=== PATIENT | male | born 1960 | race Caucasian/White ===

== ENCOUNTER 2024-10-02 10:40 | Emergency (ER) | payer MEDICARE, OTHER, SELFPAY ==
[2024-10-02] VITALS (14 sets, daily range): BP systolic 107–158; BP diastolic 71–92; PULSE 50–68; RESP 12–26; TEMP 36.4; O2SAT 95–98; BMI 25.1
--- NOTE | 2024-10-02 10:47 | EKG_ITS ---
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
--- NOTE | 2024-10-02 10:53 | DI.RAD.S_ITS ---
PROCEDURE: XR CHEST 1V INDICATIONS: syncope TECHNIQUE: One view of the chest was acquired. COMPARISON: None. FINDINGS: Surgical changes and devices: None. Lungs and pleura: Lungs are clear. No pleural effusions or pneumothorax. Mediastinum: Mediastinal contours appear normal. Heart size is normal. Bones and chest wall: No suspicious bony lesions. Overlying soft tissues appear unremarkable. IMPRESSION: No acute cardiopulmonary abnormality is seen. Dictated by: Manuel Venegas M.D. on 10/02/2024 at 10:32 Approved by: Manuel Venegas M.D. on 10/02/2024 at 10:32
--- NOTE | 2024-10-02 10:54 | PC.NURSE ---
Pt reports he does not answer SI/HI routine questions. Pt has no threatening behavior. Compliant with care.
[2024-10-02 11:00] LABS: Add Manual Diff / Slide Review NO; Hematocrit 46.1 % (41-53); Hemoglobin 16.0 g/dL (13.5-17.5); Lymphocytes Absolute Auto 1000 /uL (1100-4500); Mean Corpuscular HGB Conc 34.7 % (30-36); Mean Corpuscular Hemoglobin 31.4 PG (26-34); Mean Corpuscular Volume 90.5 fL (80-100); Platelet Count 118 X10^3/uL (150-400)
[2024-10-02 11:07] LABS: INR 1.0 (0.9-1.3); Prothrombin Time 10.8 SECONDS (9.4-12.5)
[2024-10-02 11:09] LABS: Alanine Aminotransferase 35 IU/L (<50); Albumin 4.7 g/dL (3.5-5.0); Albumin Globulin Ratio 1.6 (1.0-2.8); Alkaline Phosphatase 45 U/L (38-126); Blood Urea Nitrogen 23 mg/dL (9-20); Calcium 9.2 mg/dL (8.4-10.2); Carbon Dioxide 27 mmol/L (22-32); Chloride 105 mmol/L (98-107); Estimated Glomerular Filt Rate > 60 mL/min (>60); Globulin 2.9 g/dL (1.7-4.1); Glucose 96 mg/dL (70-99); HEMOLYSIS 24 (0-50); PTT Partial Thromboplastin Tim 24 SECONDS (25.1-36.5); Potassium 4.2 mmol/L (3.4-5.1); Sodium 140 mmol/L (137-145); Total Protein 7.6 g/dL (6.3-8.2)
[2024-10-02 11:20] LABS: NT-proBNP (BNP-Adult 18+) 104 pg/mL (<125); Troponin I < 0.012 ng/mL (0.01-0.034)
[2024-10-02 11:50] LABS: Thyroid Stimulating Hormone 1.28 uIU/mL (0.47-4.68)
[2024-10-02 13:18] LABS: Appearance Urine UA CLEAR; Bilirubin Urine UA NEGATIVE (NEGATIVE); Color Urine UA YELLOW; Glucose Urine UA NEGATIVE (Negative); Ketones Urine UA NEGATIVE (NEGATIVE); Leukocyte Esterase Urine UA NEGATIVE (NEGATIVE); Nitrite Urine UA NEGATIVE (Negative); Occult Blood Urine UA NEGATIVE (Negative); Protein Urine UA NEGATIVE (Negative); Specific Gravity Urine UA 1.020 (1.000-1.035); Urobilinogen Urine UA 2.0 E.U./dL (0.2); pH Urine UA 6.5 (4.5-8.0)
[2024-10-02 13:22] LABS: UR Morphine/Opiate cutoff 300 Negative (Negative); Ur Creatinine Normal (Normal); Ur Specific Gravity Normal (Normal); Urine MDMA Negative (Negative); Urine Methamphetamines Negative (Negative); Urine THC Negative (Negative); Urine Tricyclic Antidepressant Negative (Negative); Urine pH Normal (Normal)
[2024-10-02 13:39] LABS: Troponin I 0.015 ng/mL (0.01-0.034)
--- NOTE | 2024-10-02 15:51 | ED.SYNCOPE ---
HPI - Syncope General Chief Complaint: Syncope Stated Complaint: passed out, 1 yr ago heart attack protocol Time Seen by Provider: 10/02/24 10:52 Source: patient Mode of arrival: Ambulatory Limitations: no limitations History of Present Illness HPI narrative: Pleasant 63-year-old man with a history of [place] 1 year ago comes to the ER because of a syncopal episode which occurred while he was washing his face today. 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 He states for many years his resting heart rate has been in the 40s or 50s. He was put on metoprolol after his [place] but this had to be discontinued because of low heart rates and lightheadedness. However, he denies any syncope for at least 30 years but he has syncopized in the past. He denies any injuries today no headache neck pain or changes in vision hearing speech or swallowing. No new numbness tingling or weakness anywhere on the body or pain anywhere on the body. He has no other concerns or complaints at this time. Related Data Allergies Allergy/AdvReac Type Severity Reaction Status Date / Time No Known Drug Allergies Allergy Verified 10/02/24 10:47 Patient History Social History Smoking Status: Never smoker Smoking Status: Never smoker Exam Initial Vital Signs Initial Vital Signs: Vital Signs Temperature 97.6 F 10/02/24 10:44 Pulse Rate 60 10/02/24 10:44 Respiratory Rate 16 10/02/24 10:44 Blood Pressure 158/92 H 10/02/24 10:44 Pulse Oximetry 98 10/02/24 10:44 Oxygen Delivery Method Room Air 10/02/24 10:44 Const General: comfortable, well developed, No acute distress, No in distress and No ill appearing Nutritional Appearance: average body habitus [facility] Head: normal to inspection, normocephalic and atraumatic Neck Neck: normal visual inspection and No tender Carotids: no bruits Chest Chest: normal inspection of the chest Resp Effort & Inspection: normal respiratory effort Auscultation: clear to auscultation bilaterally and no wheezes Cardio Rate: bradycardic Rhythm: regular rhythm Heart Sounds: S1 normal and S2 normal GI Palpation: soft and No tender General: No CVA tenderness Neuro General: patient alert, patient awake, patient oriented x3, tone normal and moves all extremities Cranial Nerves: CN's II-XI intact bilaterally and PERRL Psych Appearance: grossly normal Course Course Course Narrative: Patient seen and examined by myself upon arrival. His entire workup including electrolytes and cardiac enzymes x2 was negative. Thankfully, the patient does have an upcoming cardiology appointment in 2 days so I called their practice and spoke with Dr. 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 She also advised that it was okay to discharge this patient home since he has an echo coming this week and he has not been syncopized in more than once. She also advised that she would order him a outpatient bus monitor to assess for arrhythmia. Otherwise, I gave the patient safety instructions including not to do any activity where losing consciousness could harm him including riding a bike, driving a car, swimming or bathing alone etc.. The patient was in agreement with this plan as was his . Orders Ordered: ED Orders 10/02/24 10:50 BNP [NT-proBNP (BNP-Adult 18+)] Stat Complete Blood Count AUTO DIFF Stat Comprehensive Metabolic Panel Stat D Dimer Stat PTT Partial Thromboplastin Reji Stat Prothrombin Time INR Stat TSH [Thyroid Stimulating Hormone] Stat Troponin I Stat 10/02/24 10:52 EKG-12 Lead Stat 10/02/24 10:53 XR chest 1V Stat 10/02/24 13:05 Trop I [Troponin I] Stat Urinalysis Screen (Dip Only) Stat Urine Drug Screen, Rapid Stat EKG: Sinus bradycardia 56 beats per minute. No ST or T-wave changes. Vital Signs Vital signs: Vital Signs - 8 hr 10/02/24 10:44 10/02/24 10:44 10/02/24 10:47 Temperature 97.6 F Pulse Rate 60 58 L 59 L Pulse Rate [Orthostatic Lying] Pulse Rate [Orthostatic Sitting] Pulse Rate [Orthostatic Standing] Respiratory Rate 16 23 12 Blood Pressure 158/92 H Blood Pressure [Orthostatic Lying] Blood Pressure [Orthostatic Sitting] Blood Pressure [Orthostatic Standing] Pulse Oximetry 98 96 Oxygen Delivery Method Room Air 10/02/24 10:47 10/02/24 11:00 10/02/24 11:00 Temperature Pulse Rate 56 L Pulse Rate [Orthostatic Lying] Pulse Rate [Orthostatic Sitting] Pulse Rate [Orthostatic Standing] Respiratory Rate 22 Blood Pressure 158/92 H 120/75 Blood Pressure [Orthostatic Lying] Blood Pressure [Orthostatic Sitting] Blood Pressure [Orthostatic Standing] Pulse Oximetry 95 Oxygen Delivery Method 10/02/24 11:30 10/02/24 11:30 10/02/24 11:56 Temperature Pulse Rate 59 L Pulse Rate [Orthostatic Lying] Pulse Rate [Orthostatic Sitting] Pulse Rate [Orthostatic Standing] Respiratory Rate 15 Blood Pressure 115/82 111/71 Blood Pressure [Orthostatic Lying] Blood Pressure [Orthostatic Sitting] Blood Pressure [Orthostatic Standing] Pulse Oximetry 96 Oxygen Delivery Method 10/02/24 11:56 10/02/24 11:58 10/02/24 11:58 Temperature Pulse Rate 53 L 59 L Pulse Rate [Orthostatic Lying] Pulse Rate [Orthostatic Sitting] Pulse Rate [Orthostatic Standing] Respiratory Rate 20 20 Blood Pressure 128/76 Blood Pressure [Orthostatic Lying] Blood Pressure [Orthostatic Sitting] Blood Pressure [Orthostatic Standing] Pulse Oximetry 95 96 Oxygen Delivery Method 10/02/24 11:59 10/02/24 11:59 10/02/24 12:00 Temperature Pulse Rate 68 Pulse Rate [Orthostatic Lying] 53 L Pulse Rate [Orthostatic Sitting] 57 L Pulse Rate [Orthostatic Standing] 67 Respiratory Rate 18 Blood Pressure 111/80 Blood Pressure [Orthostatic Lying] 111/71 Blood Pressure [Orthostatic Sitting] 128/76 Blood Pressure [Orthostatic Standing] 111/80 Pulse Oximetry 96 Oxygen Delivery Method 10/02/24 12:00 10/02/24 12:30 10/02/24 12:30 Temperature Pulse Rate 56 L 54 L Pulse Rate [Orthostatic Lying] Pulse Rate [Orthostatic Sitting] Pulse Rate [Orthostatic Standing] Respiratory Rate 22 15 Blood Pressure 107/73 Blood Pressure [Orthostatic Lying] Blood Pressure [Orthostatic Sitting] Blood Pressure [Orthostatic Standing] Pulse Oximetry 96 96 Oxygen Delivery Method 10/02/24 13:04 10/02/24 13:06 10/02/24 13:06 Temperature Pulse Rate 65 56 L Pulse Rate [Orthostatic Lying] Pulse Rate [Orthostatic Sitting] Pulse Rate [Orthostatic Standing] Respiratory Rate 15 Blood Pressure 126/75 Blood Pressure [Orthostatic Lying] Blood Pressure [Orthostatic Sitting] Blood Pressure [Orthostatic Standing] Pulse Oximetry 95 96 Oxygen Delivery Method 10/02/24 13:30 10/02/24 13:30 10/02/24 14:00 Temperature Pulse Rate 52 L Pulse Rate [Orthostatic Lying] Pulse Rate [Orthostatic Sitting] Pulse Rate [Orthostatic Standing] Respiratory Rate 22 Blood Pressure 115/72 108/79 Blood Pressure [Orthostatic Lying] Blood Pressure [Orthostatic Sitting] Blood Pressure [Orthostatic Standing] Pulse Oximetry 95 Oxygen Delivery Method 10/02/24 14:00 10/02/24 14:30 10/02/24 14:30 Temperature Pulse Rate 58 L 50 L Pulse Rate [Orthostatic Lying] Pulse Rate [Orthostatic Sitting] Pulse Rate [Orthostatic Standing] Respiratory Rate 26 H 21 Blood Pressure 122/80 Blood Pressure [Orthostatic Lying] Blood Pressure [Orthostatic Sitting] Blood Pressure [Orthostatic Standing] Pulse Oximetry 95 95 Oxygen Delivery Method MDM - Syncope Differential Diagnosis Differential diagnosis: Likely syncope due to orthostatic hypotension, vasovagal syncope, complete atrioventricular block, subarachnoid hemorrhage, pulmonary embolism and dehydration Lab Data 10/02/24 10:50 10/02/24 10:50 Labs: Lab Results 10/02/24 10/02/24 10/02/24 Range/Units 10:50 11:01 13:05 WBC 5.4 (4.5-11.0) X10^3/uL RBC 5.09 (4.5-5.9) X10^6/uL Hgb 16.0 (13.5-17.5) g/dL Hct 46.1 (41-53) % MCV 90.5 (80-100) fL MCH 31.4 (26-34) PG MCHC 34.7 (30-36) % RDW 13.2 (11.6-14.8) % Plt Count 118 L (150-400) X10^3/uL Neut % (Auto) 70.6 (50-75) % Lymph % (Auto) 17.6 L (25-40) % Ada % (Auto) 5.8 (3-14) % Eos % (Auto) 5.4 H (2-4) % Baso % (Auto) 0.6 (0-2) % Neut # (Auto) 3800 (2002-8645) /uL Lymph # (Auto) 1000 L (2446-4663) /uL Ada # (Auto) 300 (0-900) /uL Eos # (Auto) 300 (0-450) /uL Baso # (Auto) 0 (0-100) /uL PT 10.8 (9.4-12.5) SECONDS INR 1.0 (0.9-1.3) APTT 24 L (25.1-36.5) SECONDS D-Dimer < 215 (<500) ng/ml Sodium 140 (137-145) mmol/L Potassium 4.2 (3.4-5.1) mmol/L Chloride 105 (98-107) mmol/L Carbon Dioxide 27 (22-32) mmol/L BUN 23 H (9-20) mg/dL Creatinine 1.16 (0.66-1.25) mg/dL Estimated GFR > 60 (>60) mL/min BUN/Creatinine Ratio 19.8 (6-22) Glucose 96 (70-99) mg/dL POC Whole Bld Glucose 107 H (70-99) mg/dL Calcium 9.2 (8.4-10.2) mg/dL Total Bilirubin 1.1 (0.2-1.3) mg/dL AST 42 (17-59) IU/L ALT 35 (<50) IU/L Alkaline Phosphatase 45 (38-126) U/L Troponin I < 0.012 0.015 (0.01-0.034) ng/mL NT-Pro-B Natriuret Pep 104 (<125) pg/mL Total Protein 7.6 (6.3-8.2) g/dL Albumin 4.7 (3.5-5.0) g/dL Globulin 2.9 (1.7-4.1) g/dL Albumin/Globulin Ratio 1.6 (1.0-2.8) TSH 1.28 (0.47-4.68) uIU/mL Urine Color Yellow Urine Appearance Clear Urine pH 6.5 (4.5-8.0) Ur Specific [place] 1.020 (1.000-1.035) Urine Protein Negative (Negative) Urine Glucose (UA) Negative (Negative) g/dL Urine Ketones Negative (NEGATIVE) Urine Occult Blood Negative (Negative) Urine Nitrate Negative (Negative) Urine Bilirubin Negative (NEGATIVE) Urine Urobilinogen 2.0 H (0.2) E.U./dL Ur Leukocyte Esterase Negative (NEGATIVE) U Opiates 300ng/mL cut Negative (Negative) Ur Oxycodone Screen Negative (Negative) Urine Methadone Screen Negative (Negative) Ur Barbiturates Screen Negative (Negative) U Tricyclic Antidepress Negative (Negative) Ur Phencyclidine Scrn Negative (Negative) Ur Amphetamines Screen Negative (Negative) U Methamphetamines Scrn Negative (Negative) Ur MDMA Scrn (Ecstasy) Negative (Negative) U Benzodiazepines Scrn Negative (Negative) Urine Cocaine Screen Negative (Negative) U Marijuana (THC) Screen Negative (Negative) Urine Specific [place] (Normal) Ur Creatinine (Normal) 10/02/24 Range/Units 13:05 WBC (4.5-11.0) X10^3/uL RBC (4.5-5.9) X10^6/uL Hgb (13.5-17.5) g/dL Hct (41-53) % MCV (80-100) fL MCH (26-34) PG MCHC (30-36) % RDW (11.6-14.8) % Plt Count (150-400) X10^3/uL Neut % (Auto) (50-75) % Lymph % (Auto) (25-40) % Ada % (Auto) (3-14) % Eos % (Auto) (2-4) % Baso % (Auto) (0-2) % Neut # (Auto) (4896-6311) /uL Lymph # (Auto) (7783-2793) /uL Ada # (Auto) (0-900) /uL Eos # (Auto) (0-450) /uL Baso # (Auto) (0-100) /uL PT (9.4-12.5) SECONDS INR (0.9-1.3) APTT (25.1-36.5) SECONDS D-Dimer (<500) ng/ml Sodium (137-145) mmol/L Potassium (3.4-5.1) mmol/L Chloride (98-107) mmol/L Carbon Dioxide (22-32) mmol/L BUN (9-20) mg/dL Creatinine (0.66-1.25) mg/dL Estimated GFR (>60) mL/min BUN/Creatinine Ratio (6-22) Glucose (70-99) mg/dL POC Whole Bld Glucose (70-99) mg/dL Calcium (8.4-10.2) mg/dL Total Bilirubin (0.2-1.3) mg/dL AST (17-59) IU/L ALT (<50) IU/L Alkaline Phosphatase (38-126) U/L Troponin I (0.01-0.034) ng/mL NT-Pro-B Natriuret Pep (<125) pg/mL Total Protein (6.3-8.2) g/dL Albumin (3.5-5.0) g/dL Globulin (1.7-4.1) g/dL Albumin/Globulin Ratio (1.0-2.8) TSH (0.47-4.68) uIU/mL Urine Color Urine Appearance Urine pH Normal (4.5-8.0) Ur Specific [place] (1.000-1.035) Urine Protein (Negative) Urine Glucose (UA) (Negative) g/dL Urine Ketones (NEGATIVE) Urine Occult Blood (Negative) Urine Nitrate (Negative) Urine Bilirubin (NEGATIVE) Urine Urobilinogen (0.2) E.U./dL Ur Leukocyte Esterase (NEGATIVE) U Opiates 300ng/mL cut (Negative) Ur Oxycodone Screen (Negative) Urine Methadone Screen (Negative) Ur Barbiturates Screen (Negative) U Tricyclic Antidepress (Negative) Ur Phencyclidine Scrn (Negative) Ur Amphetamines Screen (Negative) U Methamphetamines Scrn (Negative) Ur MDMA Scrn (Ecstasy) (Negative) U Benzodiazepines Scrn (Negative) Urine Cocaine Screen (Negative) U Marijuana (THC) Screen (Negative) Urine Specific [place] Normal (Normal) Ur Creatinine Normal (Normal) Discharge Plan Departure Patient Disposition: Home Clinical Impression: Syncope and collapse Instructions: DI for Syncope in Adults (Fainting) Activity Restrictions/Additional Instructions: If you have any further symptoms especially if you pass out again or if you began having chest pain, palpitation shortness of breath or lightheadedness or any other concerns then please return to the ER right away for further evaluation or call 911. 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 They should be doing an echocardiogram and should also be providing you with the outpatient bus monitor that can help monitor you for arrhythmias over a longer time frame. Referrals: Nelson Chavez MD [Physician, Cardiology] - As soon as possible Stand Alone Forms: Patient Portal/API
== END 2024-10-02 14:48 | disposition home or self-care (01) ==
PROVIDERS: Emergency Provider Emergency Medicine
DX: R55 Syncope and collapse (principal); I25.2 Old myocardial infarction
CPT/HCPCS: 71045; 80053; 80305; 81003; 82962; 83880; 84443; 84484; 85025; 85379; 85610; 85730; 93005; 99283; 99284